=== PATIENT | female | born 1950 | race Caucasian/White ===

== ENCOUNTER 2024-01-01 08:52 | Outpatient (CLI) | payer MEDICARE | END 2024-01-01 08:53 | disposition home or self-care (01) | LOC: CT 08:52 | PROVIDERS: ATTEND Internal Medicine Hematology & Oncology | DX: C21.8 Malignant neoplasm of overlapping sites of rectum, anus and anal canal (principal); K76.9 Liver disease, unspecified | CPT/HCPCS: 74177; J1642 ==

== ENCOUNTER 2024-05-20 11:33 | Inpatient (IN) | payer MEDICARE ==
[2024-05-20] MEDS ORDERED: Indocyanine Green 25 MG/10 ML VIAL ONE (12:46)
[2024-05-20] MEDS ORDERED: Bupivacaine 0.25% HCL 30 ML VIAL ONE (12:47)
[2024-05-20] MEDS ORDERED: EPINEPHrine 1 MG/ML VIAL ONE (12:47)
[2024-05-20] MEDS ORDERED: Heparin 5,000 UNITS/ML VIAL ONE (12:51)
[2024-05-20] MEDS ORDERED: Gabapentin 300 MG CAP ONE (12:51)
[2024-05-20] MEDS ORDERED: Ketorolac Tromethamine 30 MG (1 mL) VIAL ONE (12:51)
[2024-05-20] MEDS ORDERED: Acetaminophen 325 MG (10.15 ML) UDCUP ONE (12:51)
[2024-05-20] MEDS ORDERED: metroNIDAZOLE 500 MG (100 mL) BAG ONE (12:52)
[2024-05-20 13:00] LABS: #Basophils 0.03 10x3/uL (0.0-0.2); %Basophils 0.3 % (0.0-1.0); %Lymphocytes 7.8 % (21.0-51.0); %Monocytes 8.8 % (0.0-10.0); %Neutrophils 81.9 % (42.0-75.0); Hematocrit 43.7 % (36.0-47.0); Hemoglobin 14.2 g/dL (12.0-16.0); Mean Corpuscular HGB CONC 32.5 g/dL (32.0-36.0); Mean Corpuscular Hemoglobin 34.1 pg (27.0-31.0); Mean Platelet Volume 8.8 fL (7.4-10.4); Platelet Count 306 10x3/uL (130-400); RBC Distribution Width 12.8 % (11.5-14.5); Red Blood Cell (RBC) Count 4.16 mill/uL (4.20-5.40)
[2024-05-20] MEDS ORDERED: Lidocaine 2% PF 5 ML VIAL ONE (13:15)
[2024-05-20] MEDS ORDERED: Ondansetron PF 4 MG/2 ML Vial ONE (13:15)
[2024-05-20] MEDS ORDERED: Dexamethasone 20 MG/5 ML VIAL ONE (13:15)
[2024-05-20] MEDS ORDERED: fentaNYL PF 100 MCG/2 ML SYRINGE ONE ×2 (13:15→14:13)
[2024-05-20] MEDS ORDERED: PROPOFOL 20 ML ONE (13:15)
[2024-05-20] MEDS ORDERED: Rocuronium Bromide 10 MG/ML (10ML VIAL) ONE (13:15)
[2024-05-20] MEDS ORDERED: CEFAZOLIN 2 GM VIAL ONE (13:21)
[2024-05-20] MEDS ORDERED: Midazolam HCl 2 mg/2 ml Vial ONE (13:23)
[2024-05-20 13:35] LABS: ALT (SGPT) 9 U/L (8-55); AST (SGOT) 17 U/L (5-34); Albumin 3.9 g/dL (3.4-4.8); Alkaline Phosphatase 87 U/L (40-110); Anion Gap 17 mmol/L (10-20); BUN (Urea Nitrogen) 11 mg/dL (9.8-20.1); Bilirubin, Total 0.4 mg/dL (0.2-1.2); Calc. Creatinine Clearance 50 mL/min (70-130); Calcium 9.4 mg/dL (7.8-10.44); Carbon Dioxide 25 mmol/L (23-31); Chloride 103 mmol/L (98-107); Estimated GFR 91; Glucose 96 mg/dL (83-110); Potassium 4.2 mmol/L (3.5-5.1); Protein, Total 7.9 g/dL (5.8-8.1); Sodium 141 mmol/L (136-145)
[2024-05-20] MEDS ORDERED: Lidocaine 1% PF 5 ML VIAL ONE (13:45)
[2024-05-20] MEDS ORDERED: Esmolol 100 MG/10 ML VIAL ONE (14:13)
[2024-05-20] MEDS ORDERED: PHENYLEPHRINE-NS 100 MCG/ML 10 ML SYRINGE ONE (14:23)
[2024-05-20] MEDS ORDERED: Glycopyrrolate 0.2 MG/ML 5 ML SYRINGE ONE (14:25)
[2024-05-20] MEDS ORDERED: SUGAMMADEX SODIUM 200 MG/2 ML VIAL ONE (15:36)
[2024-05-20] MEDS ORDERED: hydrALAZINE 20 MG/ML VIAL SLOW IVP PRN (15:45)
[2024-05-20] MEDS ORDERED: Ipratropium/Albuterol 3 ML NEB NEB PRN (15:45)
[2024-05-20] MEDS ORDERED: HYDROcodone/Acetaminophen 5/325 mg Tablet PO PRN (15:51)
[2024-05-20] MEDS ORDERED: Diphenoxylate HCl/Atropine Tablet PO PRN (15:51)
[2024-05-20] MEDS ORDERED: Ondansetron HCl/PF 4 MG/2 ML Vial IVP PRN (15:51)
[2024-05-20] MEDS ORDERED: Promethazine HCl 25 MG/ML VIAL IM PRN (15:51)
[2024-05-20] MEDS ORDERED: fentaNYL 50 mcg/mL 1 mL Vial ONE ×2 (16:19→16:53)
[2024-05-20] MEDS ORDERED: D5 1/2 NS w/20 mEq KCL 1,000 ML ONE (16:53)
[2024-05-20] MEDS: D5 1/2 NS w/20 mEq KCL 1,000 ML IV SCH (17:00)
[2024-05-20] MEDS: Morphine 2 MG/ML VIAL SLOW IVP PRN (18:03)
[2024-05-20 19:45] VITALS: BMI 19.9
[2024-05-20] MEDS: Famotidine 20 MG TAB PO SCH (19:51)
[2024-05-20] MEDS: Enoxaparin 30 MG (0.3 mL) SYRINGE SC SCH (19:51)
[2024-05-20] MEDS: HYDROcodone/Acetaminophen 5/325 mg Tablet PO PRN (19:51)
[2024-05-21] MEDS: Sodium Chloride 0.9% 1,000 ML IV SCH (05:27)
[2024-05-21 06:09] LABS: #Basophils Less than 0.03 10x3/uL (0.0-0.2); #Eosinophils Less than 0.03 10x3/uL (0.0-0.7); %Basophils 0.1 % (0.0-1.0); %Lymphocytes 5.5 % (21.0-51.0); %Monocytes 12.7 % (0.0-10.0); %Neutrophils 81.1 % (42.0-75.0); Anion Gap 9 mmol/L (10-20); BUN (Urea Nitrogen) 14 mg/dL (9.8-20.1); Calc. Creatinine Clearance 57 mL/min (70-130); Calcium 7.5 mg/dL (7.8-10.44); Carbon Dioxide 24 mmol/L (23-31); Chloride 106 mmol/L (98-107); Estimated GFR 91; Glucose 157 mg/dL (83-110); Hematocrit 24.2 % (36.0-47.0); Hemoglobin 7.7 g/dL (12.0-16.0); Mean Corpuscular HGB CONC 31.8 g/dL (32.0-36.0); Mean Corpuscular Hemoglobin 34.1 pg (27.0-31.0); Mean Corpuscular Volume 107.1 fL (78.0-98.0); Mean Platelet Volume 8.7 fL (7.4-10.4); Platelet Count 207 10x3/uL (130-400); Potassium 4.6 mmol/L (3.5-5.1); RBC Distribution Width 12.9 % (11.5-14.5); Red Blood Cell (RBC) Count 2.26 mill/uL (4.20-5.40); Sodium 134 mmol/L (136-145)
[2024-05-21 10:54] VITALS: BMI 19.9
[2024-05-21] MEDS: Ondansetron PF 4 MG/2 ML Vial IVP PRN (19:41)
[2024-05-22] MEDS: Promethazine HCl 25 MG/ML VIAL IM PRN (03:43)
[2024-05-22 03:58] LABS: #Basophils 0.03 10x3/uL (0.0-0.2); #Eosinophils Less than 0.03 10x3/uL (0.0-0.7); %Basophils 0.4 % (0.0-1.0); %Eosinophils 0.3 % (0.0-10.0); %Lymphocytes 5.9 % (21.0-51.0); %Monocytes 10.6 % (0.0-10.0); %Neutrophils 82.5 % (42.0-75.0); Hematocrit 24.4 % (36.0-47.0); Hemoglobin 7.8 g/dL (12.0-16.0); Mean Corpuscular Hemoglobin 34.1 pg (27.0-31.0); Mean Corpuscular Volume 106.6 fL (78.0-98.0); Mean Platelet Volume 8.8 fL (7.4-10.4); Platelet Count 197 10x3/uL (130-400); RBC Distribution Width 12.9 % (11.5-14.5); Red Blood Cell (RBC) Count 2.29 mill/uL (4.20-5.40)
[2024-05-22 04:47] LABS: Anion Gap 9 mmol/L (10-20); BUN (Urea Nitrogen) 5 mg/dL (9.8-20.1); Calc. Creatinine Clearance 63 mL/min (70-130); Calcium 7.5 mg/dL (7.8-10.44); Carbon Dioxide 24 mmol/L (23-31); Chloride 106 mmol/L (98-107); Estimated GFR 94; Glucose 148 mg/dL (83-110); Potassium 4.1 mmol/L (3.5-5.1); Sodium 135 mmol/L (136-145)
[2024-05-22] MEDS ORDERED: Enoxaparin 40 MG (0.4 mL) SYRINGE SC SCH (09:00)
[2024-05-24 04:35] LABS: Hematocrit 27.1 % (36.0-47.0); Hemoglobin 8.9 g/dL (12.0-16.0); Mean Corpuscular HGB CONC 32.8 g/dL (32.0-36.0); Mean Corpuscular Hemoglobin 34.1 pg (27.0-31.0); Mean Corpuscular Volume 103.8 fL (78.0-98.0); Platelet Count 268 10x3/uL (130-400); RBC Distribution Width 12.5 % (11.5-14.5); Red Blood Cell (RBC) Count 2.61 mill/uL (4.20-5.40)
[2024-05-24 04:48] LABS: Anion Gap 12 mmol/L (10-20); BUN (Urea Nitrogen) 12 mg/dL (9.8-20.1); Calc. Creatinine Clearance 62 mL/min (70-130); Calcium 8.4 mg/dL (7.8-10.44); Carbon Dioxide 27 mmol/L (23-31); Chloride 103 mmol/L (98-107); Estimated GFR 94; Glucose 98 mg/dL (83-110); Potassium 4.2 mmol/L (3.5-5.1); Sodium 138 mmol/L (136-145)
[2024-05-24] MEDS: Enoxaparin 40 MG (0.4 mL) SYRINGE SC SCH (08:26)
[2024-05-26 12:45] VITALS: BP 113/72; TEMP 98.8
== END 2024-05-26 14:38 | DRG 330 ==
LOC: SURG A 11:33
PROVIDERS: ADMIT Surgery; ATTEND Surgery
PROC: 0DTP0ZZ Resection of Rectum, Open Approach (ICD-10-PCS; principal; 2024-05-20)
PROC: 0DBN0ZZ Excision of Sigmoid Colon, Open Approach (ICD-10-PCS; 2024-05-20)
PROC: 0DBQ0ZZ Excision of Anus, Open Approach (ICD-10-PCS; 2024-05-20)
PROC: 0DSN0ZZ Reposition Sigmoid Colon, Open Approach (ICD-10-PCS; 2024-05-20)
DX: C20 Malignant neoplasm of rectum (principal); C21.0 Malignant neoplasm of anus, unspecified; D62 Acute posthemorrhagic anemia; E03.9 Hypothyroidism, unspecified; F17.210 Nicotine dependence, cigarettes, uncomplicated; Z79.890 Hormone replacement therapy; Z79.899 Other long term (current) drug therapy; Z88.2 Allergy status to sulfonamides; Z91.041 Radiographic dye allergy status; Z92.21 Personal history of antineoplastic chemotherapy; Z92.3 Personal history of irradiation; Z90.49 Acquired absence of other specified parts of digestive tract
CPT/HCPCS: 36415; 80048; 80053; 82378; 85025; 85027; 86850; 86900; 86901; 88309; 88342; 93005; 93010; 97139; J0171; J0665; J1100; J1644; J1650; J1885; J2250; J2272; J2405; J2550; J2704; J3010; J3480; J7030; S2900

== ENCOUNTER 2025-02-04 09:38 | Outpatient (CLI) | payer MEDICARE ==
[2025-02-04 10:01] LABS: Estimated GFR - POC 92.0
[2025-02-04] MEDS ORDERED: Iopamidol 370 76% 100 ML VIAL ONE (11:34)
== END 2025-02-04 09:39 | disposition home or self-care (01) ==
LOC: CT 09:38
PROVIDERS: ATTEND Radiology Radiation Oncology
DX: C20 Malignant neoplasm of rectum (principal); N13.30 Unspecified hydronephrosis; Z90.49 Acquired absence of other specified parts of digestive tract
CPT/HCPCS: 36415; 71260; 74177; 82565; Q9967